=== PATIENT | male | born 1995 | race Two or more races ===

== ENCOUNTER 2022-08-11 18:05 | Emergency (ER) | payer MEDICAID ==
[~2022-08-11] VITALS: Ht 167.6 cm; Wt 63.6 kg
[2022-08-11 21:16] VITALS: BP 141/62
== END 2022-08-11 22:13 | disposition home or self-care (01) ==
LOC: EMS 18:21
DX: S62.347A Nondisplaced fracture of base of fifth metacarpal bone, left hand, initial encounter for closed fracture (principal); F17.210 Nicotine dependence, cigarettes, uncomplicated; F12.90 Cannabis use, unspecified, uncomplicated; I35.0 Nonrheumatic aortic (valve) stenosis; Z98.62 Peripheral vascular angioplasty status; X58.XXXA Exposure to other specified factors, initial encounter; Y93.89 Activity, other specified; Y92.89 Other specified places as the place of occurrence of the external cause; Y99.8 Other external cause status
CPT/HCPCS: 99284; 73110-TC; 73130-TC; Z7502